=== PATIENT | male | born 1980 | race Caucasian/White ===

== ENCOUNTER 2018-02-24 18:09 | Emergency (ER) | payer OTHER ==
[~2018-02-24] VITALS: Ht 177.8 cm; Wt 131.5 kg
[2018-02-24] MEDS ORDERED: PREDNISONE 10 M10 M1 PO (18:47)
[2018-02-24] MEDS ORDERED: BACTRIM DS TAB1 EACH PO (18:47)
[2018-02-24 19:03] LABS: URINE BILIRUBIN NEGATIVE (Negative); URINE BLOOD TRACE (Negative); URINE CLARITY CLEAR; URINE COLOR YELLOW; URINE GLUCOSE-RANDOM NEGATIVE (Negative); URINE KETONES NEGATIVE (Negative); URINE LEUKOCYTES-REFLEX NEGATIVE (Negative); URINE NITRITE-REFLEX NEGATIVE (Negative); URINE PROTEIN NEGATIVE (Negative); URINE SPECIFIC GRAVITY >= 1.030 (1.005-1.030); URINE UROBILINOGEN 0.2 E.U./dl (0.2-1.0)
[2018-02-24 19:10] LABS: BACTERIA-REFLEX 1-9 Few /HPF (None Seen); MUCUS >6 Heavy strn/LPF (None Seen); SQUAMOUS 0-3 Few /LPF (0-3); URINE RBC 3-10 Few /HPF (0-2); URINE WBC-REFLEX 0-5 Rare /HPF (0-5)
[2018-02-24 19:39] VITALS: BP 159/101
== END 2018-02-24 19:41 | disposition home or self-care (01) ==
LOC: M.ERS 18:09
PROVIDERS: Nurse Practitioner
DX: L03.818 Cellulitis of other sites (principal)

== ENCOUNTER 2021-02-21 03:35 | Emergency (ER) | payer OTHER ==
[~2021-02-21] VITALS: Ht 177.8 cm; Wt 164.2 kg
[~2021-02-21 03:35] MED LIST: BACTRIM DS TAB1 EACH PO; PREDNISONE 10 M10 M1 PO
[2021-02-21 04:43] LABS: URINE BILIRUBIN NEGATIVE (Negative); URINE BLOOD TRACE (Negative); URINE CLARITY CLEAR; URINE COLOR YELLOW; URINE GLUCOSE-RANDOM 2+ (Negative); URINE KETONES NEGATIVE (Negative); URINE LEUKOCYTES-REFLEX NEGATIVE (Negative); URINE NITRITE-REFLEX NEGATIVE (Negative); URINE PROTEIN NEGATIVE (Negative); URINE SPECIFIC GRAVITY >= 1.030 (1.005-1.030); URINE UROBILINOGEN 0.2 E.U./dl (0.2-1.0)
[2021-02-21 05:10] VITALS: BP 173/107
== END 2021-02-21 05:12 | disposition home or self-care (01) ==
LOC: M.ERS 03:35
PROVIDERS: Personal Emergency Response Attendant
DX: S30.813A Abrasion of scrotum and testes, initial encounter (principal); X58.XXXA Exposure to other specified factors, initial encounter; Y93.89 Activity, other specified; Y92.89 Other specified places as the place of occurrence of the external cause; Y99.8 Other external cause status